=== PATIENT | male | born 1990 | race Two or more races ===

== ENCOUNTER 2019-11-05 10:44 | Emergency (ER) | payer SELFPAY ==
[~2019-11-05] VITALS: Ht 190.5 cm; Wt 124.0 kg
[2019-11-05] MEDS ORDERED: KETOROLAC 30 MG/1 ML ONE (11:09)
[2019-11-05] MEDS ORDERED: DEXAMETHASONE 4 MG/ML, 5ML ONE (11:09)
[2019-11-05] MEDS ORDERED: DEXAMETHASONE 4 MG/ML, 1ML IVPush ONE (11:30)
[2019-11-05] MEDS ORDERED: SODIUM CHLORIDE FLUSH 10ML SYR IVF ONE (11:30)
[2019-11-05] MEDS ORDERED: PLEASE ENTER ALLERGIES MC SCH (11:30)
[2019-11-05] MEDS ORDERED: KETOROLAC 30 MG/1 ML IVPush ONE (11:30)
[2019-11-05] MEDS ORDERED: AMPICILLIN/SULBACTAM 3 GM in SODIUM CHLORIDE 0.9% 100 ML IV ONE (11:30)
--- NOTE | 2019-11-05 11:50 | NUR ---
Pt here for R cheek swelling and tooth pain. Pt to xray.
[2019-11-05] MEDS ORDERED: OXYcodone/APAP 5/325MG TABLET PO ONE (12:00)
--- NOTE | 2019-11-05 12:16 | NUR ---
Pt back from Xray, ABX infusing
[2019-11-05 13:36] VITALS: BP 115/75
== END 2019-11-05 13:50 | disposition home or self-care (01) ==
LOC: ED 12:47
DX: K04.7 Periapical abscess without sinus (principal); R22.0 Localized swelling, mass and lump, head
CPT/HCPCS: 70100; 96365; 96375; 99284; J0295; J1100; J1885

== ENCOUNTER 2020-09-19 11:03 | Emergency (ER) | payer OTHER ==
[~2020-09-19] VITALS: Ht 190.5 cm; Wt 136.5 kg
[2020-09-19 11:14] VITALS: BP 117/79
--- NOTE | 2020-09-19 12:11 | NUR ---
Patient given discharge instructions and they have confirmed that they understand the instructions. Patient ambulatory with steady gait.
== END 2020-09-19 12:12 | disposition home or self-care (01) ==
LOC: ED 12:00
DX: B07.0 Plantar wart (principal)
CPT/HCPCS: 99281